=== PATIENT | male | born 1975 | race Caucasian/White ===

== ENCOUNTER 2023-12-17 16:04 | Emergency (ER) | payer OTHER, SELFPAY ==
--- NOTE | ~2023-12-17 | XR_ITS ---
EXAMINATION: XR chest 2V DATE: 12/17/2023 17:10 INDICATION: Cough and shortness of breath. TECHNIQUE: Frontal and lateral views of the chest were obtained on 4 radiographs. COMPARISON: None. FINDINGS: There is no pneumonia, pleural effusion, or pneumothorax. The heart size is normal. There i s mild chronic anterior wedging of multiple midthoracic vertebral bodies. IMPRESSION: 1. No acute cardiopulmonary disease. Reviewed, dictated and finalized at location E.
[2023-12-17 16:13] VITALS: BP 186/99; PULSE 110; RESP 24; TEMP 36.9; O2SAT 93
--- NOTE | 2023-12-17 16:56 | ED.URI ---
HPI - URI/Sore Throat General Chief Complaint: Upper Respiratory Infection Stated Complaint: upper respiratory/throat Time Seen by Provider: 12/17/23 16:40 Source: patient, RN notes reviewed and old records reviewed Mode of arrival: ambulatory Limitations: no limitations History of Present Illness HPI Narrative: 48 year old male presents to express care with complaints of being short of breath, having swollen lymph nodes and sore throat, denies any fevers, chills or sweats. Patient reports that he has a nebulizer machine and also an inhaler, he has not used the nebulizer machine for 3 days and used his inhaler some for his feelings of dyspnea. Patient reports that at [facility] he choked on a piece of ham and he has had a sore throat since then, wonders if he aspirated. Patient states he know he has COPD he has smoked since he was young but has not been told he has COPD. Patient reports that he continues to smoke cigarettes daily 1ppd and he does smoke marijuana also. Patient has large areas of plaque psoriasis on bilateral arms states that he has never had treatment for this condition, states side effects he thinks are worse than the disease. MD elicited complaint: cough, sore throat and other (reports some dyspnea) Pertinent past history: other (tobacco abuse) Onset (ago): week(s) (2) Able to tolerate fluids by mouth: Yes Treatments prior to arrival: other (inhalers) Related Data Home Medications Medication Instructions Recorded Confirmed glipizide 5 mg tablet 5 mg PO BID 12/17/23 12/17/23 metformin 500 mg tablet 500 mg PO BID 12/17/23 12/17/23 metoprolol succinate 50 mg 50 mg PO DAILY 12/17/23 12/17/23 tablet,extended release 24 hr Allergies Allergy/AdvReac Type Severity Reaction Status Date / Time No Known Allergies Allergy Verified 12/17/23 16:33 Review of Systems Review of Systems: CONSTITUTIONAL: Denies malaise, chills, sweats, or fever. EYES: Denies visual changes, redness, or discharge. ENT: Reports rhinorrhea, congestion, sinus pain, no otalgia and positive for sore throat. CARDIOVASCULAR: Denies chest pain, palpitations, or edema. RESPIRATORY: Reports cough.? Reports some dyspnea. GASTROINTESTINAL: Denies abdominal pain, nausea, vomiting, diarrhea SKIN: Chronic plaque psoriasis rash reports no acute itching. MUSCULOSKELETAL: Denies myalgia. NEUROLOGIC: Denies headache. All systems reviewed & are unremarkable except as noted in HPI and below PMFSH Past Medical History Medical History (Updated 12/18/23 @ 18:55 by Kelsey Wagner NP) Ankle fracture, left Diabetes Hypertension Left wrist fracture with pins Plaque psoriasis Social History Social History (Updated 12/18/23 @ 18:49 by Kelsey Wagner NP) Smoking packs per day: 1 Smoking cigarettes per day: 20.0 Years smoked: 40 Smoking pack-years: 40.00 Smoking status: Current every day smoker Tobacco type: cigarettes Alcohol intake: unknown Substance use: current Substance use type: marijuana Gender identity (if verbalized by the patient): Male Comments At time of signature, agree with nursing past medical, surgical, social and family history. There is no relevant family history pertinent to the presenting complaint Exam Narrative: GENERAL: Well-appearing, well-nourished, and in no acute distress. HEAD: Normocephalic EYES: PERRLA, conjunctivae clear ENT: Nares clear, turbinates edematous and erythematous, clear to light yellow discharge. Mucous membranes moist. TM pearly zaragoza with dull light reflex bilaterally; no tragal tenderness. Oropharynx erythematous without lesions. Tonsils not enlarged and without exudate, no drooling, no hoarseness, no trismus, uvula midline.post nasal drainage NECK: Supple. No lymphadenopathy CHEST: Coarse breath sounds on auscultation, breath sounds equal. No wheezing, rhonchi, rales, or stridor. No respiratory distress, speaks in full sentences.productive cough SAO2 [id number]
[2023-12-17 17:22] VITALS: BP 136/79; PULSE 101; O2SAT 95
== END 2023-12-17 18:02 | disposition home or self-care (01) ==
PROVIDERS: Emergency Provider Registered Nurse; PCP Family Medicine
DX: J06.9 Acute upper respiratory infection, unspecified (principal); R05.9 Cough, unspecified; J02.9 Acute pharyngitis, unspecified; F17.210 Nicotine dependence, cigarettes, uncomplicated; F12.90 Cannabis use, unspecified, uncomplicated; E11.9 Type 2 diabetes mellitus without complications; I10 Essential (primary) hypertension; L40.0 Psoriasis vulgaris
CPT/HCPCS: 71046; 99213; G0463